=== PATIENT | female | born 1965 | race Two or more races ===

== ENCOUNTER → 2017-05-16 | Outpatient (CLI) | payer OTHER ==
[~2017-05-16] MED LIST: MICA40TA PO
--- NOTE | 2017-05-16 19:33 | REPMRS ---
Patient History The patient states she had a clinical breast exam in 03/2017. Family history of colorectal cancer in maternal grandfather at age 65 and colorectal cancer in maternal uncle at age 70. Took hormonal contraceptives for 10 years. Digital Woman Screen Mammo: May 16, 2017 - Exam #: [id number] Bilateral CC and MLO view(s) were taken. Technologist: Sola Huang, Technologist Prior study comparison: March 22, 2016, digital woman screen mammo performed at [facility]. March 16, 2015, digital woman screen mammo performed at [facility]. FINDINGS: There are scattered fibroglandular densities. There has been no change in the appearance of the mammogram from the prior studies. There is a mild amount of residual fibroglandular tissue which is fairly symmetric. There is no interval development of dominant mass, architectural distortion, or clustered microcalcification suggestive of malignancy. ASSESSMENT: BI-RADS/ACR category 1 mammogram. Negative. Recommendation Routine screening mammogram in 1 year (for women over age 40). This mammogram was interpreted with the aid of an FDA-approved computer-aided dectection system. Electronically Signed By: Waldemar Chino MD 05/16/17 2008
== END ==
LOC: M WHC 16:27
PROVIDERS: ATTEND Family Medicine
DX: Z12.31 Encounter for screening mammogram for malignant neoplasm of breast (principal)

== ENCOUNTER → 2019-08-15 | Outpatient (CLI) | payer OTHER ==
--- NOTE | 2019-08-15 12:28 | REP ---
Duplex extremity venous ultrasound: Right lower extremity. History: Progressive calf and leg pain and swelling. Rule out DVT. Findings: The deep veins are anechoic and fully compressible from the groin to the popliteal fossa in the right lower extremity. Color flow imaging is homogeneous. Spectral Doppler interrogation demonstrates intact respiratory variation in flow and normal manual augmentation of flow. There is no evidence of deep vein thrombosis. Impression: Negative right lower extremity duplex venous ultrasound. No evidence of deep vein thrombosis. Electronically Signed by Andry Ibanez MD 08/15/2019 12:19 P
== END ==
LOC: M RAD 11:54
PROVIDERS: ATTEND Family Medicine
DX: M79.604 Pain in right leg (principal)

== ENCOUNTER 2020-12-21 09:38 | Day surgery (SDC) | payer OTHER ==
[~2020-12-21] VITALS: Ht 170.2 cm; Wt 118.8 kg
[~2020-12-21 09:38] MED LIST changes: +ASPI81TA26 PO; +CHOL400T PO; +NS 1,000 ML IV ONE; +TELM1TAB16 PO
[2020-12-21] MEDS ORDERED: LIDOCAINE 2% 100MG/5ML SDV (FOR ANES.) As Ordered ONE (11:15)
[2020-12-21] MEDS ORDERED: propofoL 500 MG/50 ML VIAL As Ordered ONE (11:15)
--- NOTE | 2020-12-21 11:44 | ROOR ---
Patient Name: Ross Lo Procedure Date: 12/21/2020 11:25 AM Date of : 1965 Age: 55 Room: [facility] Gender: Female Note Status: Finalized Procedure: Total Colonoscopy to Cecum + Biopsy Polypectomy Indications: High risk colon cancer surveillance: Personal history of colonic polyps, Last colonoscopy: 2015 Providers: Josh Hall MD Referring MD: DONALD BENNETT MD Requesting Provider: Medicines: Monitored Anesthesia Care Complications: No immediate complications. Procedure: Pre-Anesthesia Assessment: - The heart rate, respiratory rate, oxygen saturations, blood pressure, adequacy of pulmonary ventilation, and response to care were monitored throughout the procedure. The Colonoscope was introduced through the anus and advanced to the cecum, identified by appendiceal orifice and ileocecal valve. The colonoscopy was performed without difficulty. The patient tolerated the procedure well. The quality of the bowel preparation was excellent. Findings: The perianal and digital rectal examinations were normal. Non-bleeding internal hemorrhoids were found during retroflexion. The hemorrhoids were Grade I (internal hemorrhoids that do not prolapse). A small polyp was found in the cecum. The polyp was sessile. The polyp was removed with a jumbo cold forceps. Resection and retrieval were complete. A small polyp was found at 30 cm proximal to the anus. The polyp was sessile. The polyp was removed with a jumbo cold forceps. Resection and retrieval were complete. The exam was otherwise without abnormality on direct and retroflexion views. Impression: - Non-bleeding internal hemorrhoids. - One small polyp in the cecum, removed with a jumbo cold forceps. Resected and retrieved. - One small polyp at 30 cm proximal to the anus, removed with a jumbo cold forceps. Resected and retrieved. - The examination was otherwise normal on direct and retroflexion views. - The exam was otherwise normal to the cecum. Recommendation: - Patient has a contact number available for emergencies. The signs and symptoms of potential delayed complications were discussed with the patient. Return to normal activities tomorrow. Written discharge instructions were provided to the patient. - High fiber diet. - Discharge patient to home. - Continue present medications. - Await pathology results. - Telephone GI clinic for pathology results in 1 week. - Repeat colonoscopy in 5 years for surveillance based on pathology results. - Return to referring physician. - The findings and recommendations were discussed with the patient's family. Procedure Code(s): --- Professional --- 33961, Colonoscopy, flexible; with biopsy, single or multiple Diagnosis Code(s): --- Professional --- Z86.010, Personal history of colonic polyps K64.0, First degree hemorrhoids K63.5, Polyp of colon CPT copyright 2019 [employer]. All rights reserved. The codes documented in this report are preliminary and upon vegetable farmworker review may be revised to meet current compliance requirements. Josh Hall MD Josh Hall MD 12/21/2020 11:44:17 AM Electronically signed by Josh Hall MD Number of Addenda: 0 Note Initiated On: 12/21/2020 11:25 AM Estimated Blood Loss: Estimated blood loss: none.
[2020-12-21 12:10] VITALS: BP 177/91
== END 2020-12-21 12:23 | disposition home or self-care (01) ==
LOC: M OPP 09:38
PROVIDERS: ATTEND Internal Medicine Gastroenterology
DX: Z12.11 Encounter for screening for malignant neoplasm of colon (principal); Z86.010 Personal history of colon polyps; Z83.71 Family history of colonic polyps; Z80.0 Family history of malignant neoplasm of digestive organs; K63.5 Polyp of colon; K64.0 First degree hemorrhoids; Z79.82 Long term (current) use of aspirin; Z79.899 Other long term (current) drug therapy; Z87.891 Personal history of nicotine dependence

== ENCOUNTER → 2025-04-28 | Outpatient (CLI) | payer OTHER ==
[~2025-04-28] MED LIST changes: -NS 1,000 ML IV ONE; +TELM1TAB PO; -TELM1TAB16 PO
== END ==
LOC: M PLAIMG 14:06
PROVIDERS: ATTEND Physician Assistant
DX: I08.0 Rheumatic disorders of both mitral and aortic valves (principal)